=== PATIENT | male | born 1995 | race Caucasian/White ===

== ENCOUNTER → 2017-12-25 | Outpatient (CLI) | payer BC ==
--- NOTE | 2017-12-25 12:39 | RADIOLOGY IMAGING REPORT ---
FACILITY: [facility] PATIENT NAME: Dallas Valentine : 1995 MR: [id number] V: [id number] EXAM DATE: ORDERING PHYSICIAN: MARÍA ZACARIAS TECHNOLOGIST: Location: [facility] - [place] Patient: Dallas Valentine : 1995 Visit/Account:[id number] Date of Sevice: 12/25/2017 EXAMINATION: Abdomen and pelvis CT without contrast HISTORY: Right flank pain, constipation TECHNIQUE: CT was performed through the abdomen and pelvis without iv contrast. Sagittal and coron al reformatted images were generated. One of the following dose optimization techniques was utilized in the performance of this exam: autom ated exposure control; adjustment of the mA and/or kV according to patient size; or use of iterative reconstruction technique. Specific details can be referenced in the facility's radiology CT exam ope rational policy. COMPARISON: None FINDINGS: Lower chest: Normal. Spleen: Normal. Adrenal glands: Normal. Pancreas: Normal. Kidneys: Mild to moderate right hydronephrosis. Mild right hydroureter. Calculus within the distal ri ght ureter near the ureteropelvic vesicle junction measures 3.5 mm craniocaudad by 4 mm AP. Liver / biliary: Normal gallbladder, normal liver. Vessels: Normal. Lymph node assessment: Normal. Bowel including small bowel, colon and appendix: Normal stomach, normal small bowel. Appendix not vis ualized. Moderate volume right hemicolonic stool. Peritoneum / retroperitoneum / mesentery: Normal. Pelvic structures: Normal bladder, normal prostate and normal rectum. No pelvic fluid. Mild fat st randing surrounds the distal right ureter. No pelvic fluid or adenopathy. Body wall: Tiny fat-containing umbilical hernia. Musculoskeletal: Chronic left L5 pars defect. IMPRESSION: 1. 4 mm calculus within the distal right ureter near the ureterovesical junction with resultant mild right hydroureter and mild to moderate right hydronephrosis. 2. Chronic left L5 pars defect. Report Dictated By: James Alvarez MD at 12/25/2017 12:28 PM Report E-Signed By: James Alvarez MD at 12/25/2017 12:35 PM WSN:[id number]
== END ==
LOC: CT 12:00
PROVIDERS: ATTEND Nurse Practitioner Family
DX: N13.30 Unspecified hydronephrosis (principal); N20.1 Calculus of ureter; K42.9 Umbilical hernia without obstruction or gangrene; M47.896 Other spondylosis, lumbar region
CPT/HCPCS: 74176

== ENCOUNTER → 2017-12-25 | Outpatient (REF) | payer BC ==
[2017-12-25 10:50] LABS: PLATELET COUNT, AUTOMATED 364 K/uL (150-450)
== END ==
PROVIDERS: ATTEND Nurse Practitioner Family
DX: R10.9 Unspecified abdominal pain (principal)
CPT/HCPCS: 82040; 82150; 82247; 82310; 82374; 82435; 82565; 82947; 83690; 84075; 84132; 84155; 84295; 84450; 84460; 84520; 85025

== ENCOUNTER 2018-01-02 19:07 | Inpatient (IN) | payer BC ==
[~2018-01-02] VITALS: Ht 172.7 cm; Wt 89.4 kg
[2018-01-02] MEDS ORDERED: CETI10CA8 PO (19:13)
[2018-01-02] MEDS ORDERED: HYDROmorphone* 1 MG/ML 1 MG/ML ML IVP ONE (19:20)
[2018-01-02] MEDS ORDERED: ONDANSETRON 4 MG/2 ML VIAL IVP ONE (19:20)
[2018-01-02] MEDS ORDERED: KETOROLAC 30 MG/ML VIAL IM ONE (19:20)
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
[2018-01-02] MEDS ORDERED: KETOROLAC 30 MG/ML VIAL IVP ONE (19:40)
[2018-01-02 19:44] LABS: PLATELET COUNT, AUTOMATED 362 K/uL (150-450)
--- NOTE | 2018-01-02 20:22 | RADIOLOGY IMAGING REPORT ---
FACILITY: [facility] PATIENT NAME: Dallas Valentine : 1995 MR: [id number] V: [id number] EXAM DATE: [id number] ORDERING PHYSICIAN: NIA SALAZAR TECHNOLOGIST: Location: [facility] - [place] Patient: Dallas Valentine : 1995 Visit/Account:[id number] Date of Sevice: 01/02/2018 CT abdomen and pelvis without contrast Indication: Flank pain for one week. Comparison: 12/25/2017. Technique: Axial CT images are obtained through the abdomen and pelvis. Reformatted coronal and sagit anni images were reviewed. IV contrast was not administered. One of the following dose optimization techniques was utilized in the performance of this exam: auto mated exposure control; adjustment of the mA and/or kV according to the patient's size; or use of an iterative reconstruction technique. Specific details can be referenced in the facility's radiology C T exam operational policy. Findings: Lower lung wolf: Limited views lower lung field are unremarkable. Evaluation of the solid organs of the abdomen is limited without IV contrast. Liver: No focal parenchymal abnormality of the liver. Biliary: Gallbladder appears unremarkable as well as the intra and extra hepatic biliary system. Pancreas: Normal appearance. Spleen: Normal appearance. Adrenal glands: Unremarkable. Kidneys / retroperitoneum: Mild right hydroureter and hydronephrosis secondary to a 5.6 mm stone at t he UVJ. Similar to the previous exam although the stone appears slightly more distal. No other right urinary stones. Left kidney shows no stones or hydronephrosis. No discrete renal lesions. Bowel / peritoneum / mesenteries: The visualized gastrointestinal tract is within normal limits. The appendix not definitely visualized. The stomach is distended with debris. No free air, free fluid, fluid collections or areas of inflammation. Small umbilical hernia containin g fat. Lymph node assessment: No pathologic adenopathy identified. Pelvic structures: Appear unremarkable. Vessels: No significant atherosclerotic calcifications seen throughout a nonaneurysmal abdominal aort a and branches. Musculoskeletal / Body wall: No acute or aggressive osseous abnormality. There is again a left-sided pars defect L5 level without spondylolisthesis. IMPRESSION: 1. Continued right hydronephrosis due to a UVJ stone measuring 5.6 mm. The stone is similar to the pr evious exam but may be slightly more distal. 2. Other stable chronic findings as above. Report Dictated By: Krzysztof Grimaldo at 01/02/2018 8:11 PM Report E-Signed By: Krzysztof Grimaldo at 01/02/2018 8:17 PM WSN:[id number]
[2018-01-02] MEDS ORDERED: PROMETHAZINE 25 MG/ML 1 ML AMP IVP ONE (20:40)
[2018-01-02 21:44] VITALS: BP 121/80
[2018-01-02] MEDS ORDERED: ONDANSETRON 4 MG/2 ML VIAL IVP PRN (21:45)
[2018-01-02] MEDS ORDERED: HYDROmorphone PCA 6 MG/30 ML IV PRN (21:55)
[2018-01-02] MEDS ORDERED: NALOXONE HCL 0.4 MG/ML VIAL IVP PRN (22:01)
[2018-01-02] MEDS: cefTRIAXone(*) 1 GM VIAL 1 GM in NS(*) 0.9% 100 ML ADDVANT BAG 100 ML IVP SCH (22:31)
[2018-01-02] MEDS: LR(*) 1000 ML BAG 1,000 ML IV PRN (22:31)
[2018-01-03] VITALS (14 sets, daily range): BP systolic 109–133; BP diastolic 59–104; Ht 172.7 cm; Wt 89.4 kg
[2018-01-03] MEDS: LR(*) 1000 ML BAG 1,000 ML IV PRN (06:04)
[2018-01-03] MEDS ORDERED: METOCLOPRAMIDE 10 MG/2 ML SDV ONE (07:18)
[2018-01-03] MEDS ORDERED: ONDANSETRON 4 MG/2 ML VIAL ONE (11:42)
[2018-01-03] MEDS ORDERED: LIDOCAINE MPF 1% 5 ML VIAL ONE (11:42)
[2018-01-03] MEDS ORDERED: fentaNYL CITR 100 MCG/2 ML AMP ONE ×3 (11:42→16:25)
[2018-01-03] MEDS ORDERED: PROPOFOL EMUL(*) 10MG/ML 20 ML 20 ML ONE (11:42)
[2018-01-03] MEDS ORDERED: DEXAMETHASONE SOD 4 MG/ML VIAL ONE (11:42)
[2018-01-03] MEDS ORDERED: KETAMINE HCL 200 MG/20 ML MDV ONE (12:09)
[2018-01-03] MEDS ORDERED: FAMOTIDINE(*) 20MG/50ML PREMIX 50 ML IVPB ONE (12:15)
[2018-01-03] MEDS ORDERED: IOPAMIDOL-200 50 ML VIAL IS ONE (13:34)
[2018-01-03] MEDS ORDERED: GENTAMICIN(*) 80 MG/2 ML VIAL 160 MG in NS(*) 0.9% 100 ML BAG 100 ML IVPB ONE (13:35)
[2018-01-03] MEDS ORDERED: LIDOCAINE/SOD BICARB 8.4% SYR ONE (13:43)
[2018-01-03] MEDS ORDERED: MEPERIDINE 50 MG/ML SYR ONE (16:20)
[2018-01-03] MEDS ORDERED: KETOROLAC 30 MG/ML VIAL ONE (16:24)
[2018-01-03] MEDS ORDERED: FLUSH 10 ML SYR IVP PRN (16:35)
[2018-01-03] MEDS ORDERED: LR(*) 1000 ML BAG 1,000 ML IV PRN (16:35)
[2018-01-03] MEDS ORDERED: ZOLPIDEM TARTRATE 5 MG TAB PO PRN (16:35)
[2018-01-03] MEDS ORDERED: HYDROCORTISONE 1% CR 28.35 GM TP SCH (17:00)
--- NOTE | 2018-01-03 17:30 | RADIOLOGY IMAGING REPORT ---
FACILITY: [facility] - [place] PATIENT NAME: Dallas Valentine : 1995 MR: [id number] V: [id number] EXAM DATE: [id number] ORDERING PHYSICIAN: SALMA GARY TECHNOLOGIST: Location: [facility] - [place] Patient: Dallas Valentine : 1995 Visit/Account:[id number] Date of Sevice: 01/03/2018 Exam type: RETROGRADE PYELOGRAM History: HEMATURIA Comparison: CT January 02, 2018. Findings: Nine intraoperative spot films of abdomen pelvis were submitted. The total fluoroscopy time was eigh t seconds. The total fluoroscopy dose was 4.54 mGray. Images demonstrate a small amount of contrast in the right renal collecting system which is incompletely imaged and the right ureter. There is al so placement of a right ureteral stent. A cystoscope projects over the lower pelvis IMPRESSION: 1. As above Report Dictated By: Kim Castellanos MD at 01/03/2018 5:23 PM Report E-Signed By: Kim Castellanos MD at 01/03/2018 5:26 PM WSN:[id number]
--- NOTE | 2018-01-03 17:34 | OPERATIVE REPORT 1 ---
EVENT DATE: January 03, 2018 SURGEON: Elan Ariza MD ANESTHESIOLOGIST: Farhan Cadet MD ANESTHESIA: General PREOPERATIVE DIAGNOSIS Right ureterolithiasis with associated colic, nausea and vomiting. POSTOPERATIVE DIAGNOSIS Right ureterolithiasis with associated colic, nausea and vomiting. PROCEDURE PERFORMED 1. Cystourethroscopy. 2. Right ureteropyelogram. 3. Right ureteral stent placement. DESCRIPTION OF PROCEDURE Under general anesthetic, the patient was prepped and draped in the extended lithotomy position. The 21 panendoscope admitted through the urethra into the bladder. The urethra was normal. The prostate showed trilobar hyperplasia, moderate median lobe. Bladder showed 2-3+ trabeculation. Trigone and ureteral orifices were normal, except on the right, where there was definite swelling and inflammation with probable stone just a few millimeters proximal to the right ureteral orifice. The right ureteral orifice was pinpoint in nature. Two pictures were obtained of the right ureteral orifice area. The ureteral pyelogram was obtained. The stone was in the right distal ureter. The access catheter was placed and then the guide wire. The 6 Swiss x 26 cm Percuflex Plus was passed satisfactorily up the right collecting system without any difficulty. There was a grossly hydronephrotic drip following the stent placement with enedelia , cloudy type urine emitting from the right ureteral orifice. Urine was obtained for urinalysis, culture and sensitivity at the beginning of the procedure. X-rays confirmed satisfactory positioning. Of note, the right distal ureteral orifice was almost completely to the midline at the immediate bladder neck area. In spite of the anatomy, the procedure was performed satisfactorily in a relatively atraumatic fashion in my opinion. Patient returned to the recovery room in satisfactory condition. INDICATION FOR PROCEDURE This is a 22-year-old white male complaining of right ureterorenal colic with associated nausea and vomiting when admitted through the emergency room this past evening. Historically the patient by history had a stone diagnosed on December 25, 2017. By history, the patient thinks he has had the problem for approximately two months with intermittent right ureterorenal colic episodes. This was confirmed, he had a 5.6 mm and/or larger stone at the right distal ureter. Preoperatively the options were discussed with the patient. He was agreeable to further evaluation and therapy. See operative note for details. DISCHARGE INSTRUCTIONS Patient will be discharged home on Keflex, Pepcid, Motrin, Pyridium and [place] therapy. Plan followup probably this coming Monday for ureteroscopy and treatment of the right distal ureteral stones, probable laser lithotripsy and extraction. MTDD
[2018-01-03] MEDS: cefTRIAXone(*) 1 GM VIAL 1 GM in NS(*) 0.9% 100 ML ADDVANT BAG 100 ML IVP SCH (21:17)
[2018-01-03] MEDS: FAMOTIDINE 20 MG TAB PO SCH (21:17)
[2018-01-03] MEDS: DOCUSATE SODIUM 100 MG CAP PO SCH (21:18)
[2018-01-03] MEDS: HYDROCORTISONE 1% CR 28.35 GM TP SCH (21:28)
[2018-01-03] MEDS: GENTAMICIN/NS 80 MG/100 ML PB 100 ML IVPB SCH (22:07)
[2018-01-04 03:13] VITALS: BP 123/50
[2018-01-04] MEDS: GENTAMICIN/NS 80 MG/100 ML PB 100 ML IVPB SCH (06:01)
[2018-01-04 08:26] VITALS: BP 113/62
[2018-01-04] MEDS: FAMOTIDINE 20 MG TAB PO SCH (08:27)
[2018-01-04] MEDS: HYDROCORTISONE 1% CR 28.35 GM TP SCH (08:27)
[2018-01-04] MEDS: DOCUSATE SODIUM 100 MG CAP PO SCH (08:27)
[2018-01-04] MEDS ORDERED: CEPH500T7 PO (10:48)
[2018-01-04] MEDS ORDERED: FAMO20TA28 PO (10:49)
[2018-01-04] MEDS ORDERED: IBUP800T37 PO (10:49)
[2018-01-04] MEDS ORDERED: PHEN200T32 PO (10:50)
[2018-01-04] MEDS ORDERED: HYDR-4309 PO (10:51)
[2018-01-04 11:09] VITALS: BP 116/66
== END 2018-01-04 12:10 | disposition home or self-care (01) | DRG 694 ==
LOC: ER 19:28 → MED 20:48
PROC: BT1DZZZ Fluoroscopy of Right Kidney, Ureter and Bladder (ICD-10-PCS; 2018-01-03)
PROC: 0T768DZ Dilation of Right Ureter with Intraluminal Device, Via Natural or Artificial Opening Endoscopic (ICD-10-PCS; principal; 2018-01-03 15:29)
DX: N20.1 Calculus of ureter (principal)
CPT/HCPCS: 74176; 74420; 81001; 82040; 82150; 82247; 82310; 82374; 82435; 82565; 82947; 83690; 84075; 84132; 84155; 84295; 84450; 84460; 84520; 85025; 87088; 99285; J0696; J1100; J1170; J1580; J1885; J2001; J2175; J2405; J2550; J2704; J3010; J3490; J7050; J7120; Q9966

== ENCOUNTER 2018-01-08 02:13 | Day surgery (SDC) | payer BC ==
[2018-01-03 11:15] VITALS: Ht 172.7 cm; Wt 88.0 kg
[~2018-01-08] VITALS: Ht 172.7 cm; Wt 88.0 kg
[~2018-01-08 02:13] MED LIST: CEPH500T7 PO; CETI10CA8 PO; FAMO20TA28 PO; HYDR-4309 PO; IBUP800T37 PO; PHEN200T32 PO
[2018-01-08] MEDS ORDERED: INDIGOTINDISULF SOD 40 MG/5 ML IVP ONE (10:05)
[2018-01-08 10:30] VITALS: BP 147/86
[2018-01-08] MEDS ORDERED: fentaNYL CITR 250 MCG/5 ML AMP ONE (10:47)
[2018-01-08] MEDS ORDERED: ONDANSETRON 4 MG/2 ML VIAL ONE ×2 (10:48→15:09)
[2018-01-08] MEDS ORDERED: DEXAMETHASONE SOD PHOS 10MG/ML ONE (10:48)
[2018-01-08] MEDS ORDERED: PROPOFOL EMUL(*) 10MG/ML 20 ML 20 ML ONE ×2 (10:48→12:54)
[2018-01-08] MEDS ORDERED: LIDOCAINE MPF 1% 5 ML VIAL ONE (10:48)
[2018-01-08] MEDS ORDERED: LIDOCAINE 2% JELLY 5 ML TUBE ONE (10:59)
[2018-01-08] MEDS ORDERED: ceFAZolin(*) 2GM/D5W 50ML 50 ML IVPB ONE (11:00)
[2018-01-08] MEDS ORDERED: MIDAZOLAM 2 MG/2 ML VIAL IVP PRN (11:00)
[2018-01-08] MEDS ORDERED: FAMOTIDINE 20 MG TAB PO ONE (11:00)
[2018-01-08] MEDS ORDERED: LIDOCAINE/SOD BICARB 8.4% SYR ID ONE (11:00)
[2018-01-08] MEDS ORDERED: NORMOSOL R SOLN(*) 1000 ML BAG 1,000 ML IV PRN (11:00)
[2018-01-08] MEDS ORDERED: IOPAMIDOL-200 50 ML VIAL IS ONE (11:16)
--- NOTE | 2018-01-08 11:52 | RADIOLOGY IMAGING REPORT ---
[place] [facility] [place] Dallas Valentine : 1995 MR: [id number] V: [id number] EXAM DATE: ORDERING PHYSICIAN: SALMA GARY TECHNOLOGIST: Location: [facility] Patient: Dallas Valentine : 1995 Visit/Account:[id number] Date of Sevice: 01/08/2018 Exam type: TOMOGRAPHY AND KUB W/CASSETTE History: KIDNEY STONES Comparison: CT abdomen and pelvis January 02, 2018. Findings: There is a right ureteral stent in place. No definite calcifications are seen projecting over the re nal shadows. Previously noted distal right ureteral calculus is not definitively seen. The bowel ga s pattern is nonspecific IMPRESSION: 1. Right ureteral stent No definite calcifications seen projecting over the renal shadows nor along the course of the stent Report Dictated By: Kim Castellanos MD at 01/08/2018 11:27 AM Report E-Signed By: Kim Castellanos MD at 01/08/2018 11:48 AM WSN:[id number]
[2018-01-08] MEDS ORDERED: KETAMINE HCL 200 MG/20 ML MDV ONE (12:00)
[2018-01-08] MEDS ORDERED: ROCURONIUM BROM 10 MG/ML 5 ML ONE (12:00)
[2018-01-08] MEDS ORDERED: EPHEDRINE SULFATE/NS/PF 50 MG/10 ML SYRINGE ONE (12:28)
[2018-01-08] MEDS ORDERED: KETOROLAC 30 MG/ML VIAL ONE (13:38)
[2018-01-08] MEDS ORDERED: MEPERIDINE 50 MG/ML SYR ONE (13:49)
--- NOTE | 2018-01-08 14:06 | RADIOLOGY IMAGING REPORT ---
FACILITY: [facility] PATIENT NAME: Dallas Valentine : 1995 MR: [id number] V: [id number] EXAM DATE: ORDERING PHYSICIAN: SALMA GARY TECHNOLOGIST: Location: [facility] Patient: Dallas Valentine : 1995 Visit/Account:[id number] Date of Sevice: 01/08/2018 RETROGRADE PYELOGRAM HISTORY: HEMATURIA COMPARISON: Retrograde pyelogram from January 03 FINDINGS: DOSE: Air kerma was 4 mGy. Fluoroscopic images demonstrate ureteral stent. A wire is noted. Stent is removed. IMPRESSION: Procedural fluoroscopy Report Dictated By: Celestino Oliva MD at 01/08/2018 2:01 PM Report E-Signed By: Celestino Oliva MD at 01/08/2018 2:02 PM WSN:[id number]
[2018-01-08] MEDS ORDERED: fentaNYL CITR 100 MCG/2 ML AMP ONE (14:10)
[2018-01-08 15:00] VITALS: BP 132/72
[2018-01-08 15:35] VITALS: BP 129/72
[2018-01-08 15:36] VITALS: BP 118/80
--- NOTE | 2018-01-09 15:00 | OPERATIVE REPORT 1 ---
EVENT DATE: January 08, 2018 SURGEON: Elan Ariza MD ANESTHESIOLOGIST: Clarke Ramsey MD ANESTHESIA: General anesthetic. PREOPERATIVE DIAGNOSES 1. Right ureterolithiasis. 2. Status post right ureteral stent placement. POSTOPERATIVE DIAGNOSES 1. Right ureterolithiasis. 2. Status post right ureteral stent placement. PROCEDURES PERFORMED 1. Cystourethroscopy. 2. Right ureteral stent removal. 3. Placement of right ureteral guidewire. 4. Right ureterorenoscopy. 5. Laser lithotripsy of right distal ureteral stone. 6. Basket extraction of multiple stones from the right ureter, approximately four to five stone fragments. 7. Right ureteral stent placement and subsequent removal. DESCRIPTION OF PROCEDURE Under general anesthetic, the patient was prepped and draped in the extended lithotomy position. The 21 panendoscope was admitted through the urethra to the bladder. The urethra was normal. The prostate showed trilobar hyperplasia with obstruction of most the right median lobe. Verumontanum was normal. Bladder was entered. No stones were visible in the bladder. The right ureteral stent was visualized and removed. On repeat visualization of the bladder, no stones were visible in the bladder. The access catheter was placed in the distal right ureteral orifice, and a 0.135 guidewire was passed up the right collecting system. X-ray confirmed satisfactory positioning. On introduction of the semi-rigid ureterorenoscope, the scope was admitted to the distal right ureteral orifice, and almost immediately within 3 to 4 mm, the stone was visualized. It was approximately 6 to 7 mm, yellowish-brownish type stone. Two attempts to extract the stone with the helical extractor were unsuccessful. The stone was fragmented into approximately four to five particles. The stone fragments were extracted with the stone extractor. Right ureterorenoscopy showed no stones up the entire ureter with the guidewire in place. The ureterorenoscope was in the right kidney. Again, no stones were visualized in the right kidney. The ureterorenoscopy ascending and descending as previously noted showed no evidence of any residual ureterolithiasis. There was concern about the possibility of a fragment or two that might be up in the kidney. An external stent was placed. The stent was secured to a Brito. The patient was transferred to the stone treatment unit, and no stones could be visualized with or without contrast. The procedure was completed. The external stent and Brito were removed. The patient tolerated the procedure satisfactorily and returned to the recovery room in satisfactory condition. This is a 22-year-old white male complaining of right distal ureterolithiasis with associated ureterorenal colic. The patient states he has been having pain in the right flank area for approximately two months. A right distal ureteral stone was diagnosed approximately one week ago, and the patient was to follow up for re-evaluation and therapy. That has been accomplished. See operative note for details. Patient will be ready for discharge home when alert and functional. Force fluids, 12 glasses of water per day. Activities are as tolerated. He is to strain all of his urine. He is sent home with strainers. He is to percuss his right kidney frequently to facilitate passage of stone particles. Copy of instructions for renal percussion was given to the patient. We plan followup in approximately two weeks. The patient was given Toradol in the OR by Dr. Ramsey. Patient will be discharged home on Keflex, Pepcid, Motrin, Pyridium, and [place] therapy. MTDD
== END 2018-01-08 15:00 | disposition home or self-care (01) ==
LOC: OR 02:13
DX: N20.1 Calculus of ureter (principal)
CPT/HCPCS: 52352; 52353; 74018; 74420; 76100; 82365; 88300; C1758; C1769; C1894; J1100; J1885; J2001; J2175; J2250; J2405; J2704; J3010; J3490; Q9966; J0690